=== PATIENT | male | born 1990 | race American Indian/Alaskan Native ===

== ENCOUNTER 2016-11-02 09:46 | Emergency (ER) | payer SELFPAY ==
[2016-11-02 10:03] VITALS: BP 151/100
--- NOTE | 2016-11-02 10:37 | Emergency Department Report ---
Abscess Boil HPI - HPI Chief Complaint: Skin/Abscess/Foreign Body Stated Complaint: CYST ON TAILBONE Time Seen by Provider: 11/02/16 10:36 Location: Sacral/Pilonidal Severity: Moderate History: Yes Pain, Yes Previous History (prior pilonidal asbcesses), No Fever, No Purulent Drainage, No Numbness HPI: 26-year-old male past medical history pilonidal abscess presents with 4 days of pain and swelling and redness in upper buttock region. Patient states uncomfortable to sit or lie down, states he has had abscesses in this area before. Denies any fever or chills denies any spontaneous rupture of abscess. Home Medications: Previous Rx's Medication Instructions Recorded Last Taken Type Cephalexin [Keflex] 500 mg PO Q12HR #14 cap 11/02/16 Unknown Rx Ibuprofen [Motrin] 600 mg PO Q8H PRN #30 tablet 11/02/16 Unknown Rx Sulfamethoxazole/Trimethoprim 1 each PO BID #14 tablet 11/02/16 Unknown Rx [Bactrim DS TAB] Allergies/Adverse Reactions: Allergies Allergy/AdvReac Type Severity Reaction Status Date / Time bee venom (honey bee) Allergy Swelling Verified 11/02/16 09:59 hornet venom Allergy Swelling Verified 11/02/16 09:59 ED Review of Systems ROS: Stated complaint: CYST ON TAILBONE Other details as noted in HPI Constitutional: denies: chills, fever Eyes: denies: eye pain, eye discharge, vision change ENT: denies: ear pain, throat pain Respiratory: denies: cough, shortness of breath, wheezing Cardiovascular: denies: chest pain, palpitations Endocrine: no symptoms reported Gastrointestinal: denies: abdominal pain, nausea, diarrhea Genitourinary: denies: urgency, dysuria Musculoskeletal: denies: back pain, joint swelling, arthralgia Skin: lesions. denies: rash Neurological: denies: headache, weakness, paresthesias Psychiatric: denies: anxiety, depression Hematological/Lymphatic: denies: easy bleeding, easy bruising ED Past Medical Hx - Past Medical History Hx Asthma: Yes - Surgical History Additional Surgical History: TONSILLECTOMY - Social History Smoking Status: Current Every Day Smoker Substance Use Type: Alcohol, Marijuana - Medications Home Medications: Home Medications Medication Instructions Recorded Confirmed Last Taken Type Cephalexin [Keflex] 500 mg PO Q12HR #14 cap 11/02/16 Unknown Rx Ibuprofen [Motrin] 600 mg PO Q8H PRN #30 tablet 11/02/16 Unknown Rx Sulfamethoxazole/Trimethoprim 1 each PO BID #14 tablet 11/02/16 Unknown Rx [Bactrim DS TAB] ED Abscess Boil Physical Exam - Exam General: Vital signs noted. No distress. Alert and acting appropriately. Front/Back of Body, Lg (Color): 1 - Abscess region Size: 4 cm Exam: Yes Tenderness, Yes Fluctuance, Yes Surrounding Cellulites/Erythema Exam: Visible pilonidal abscess approximately 4-5 cm in diameter with mild surrounding erythema and induration. Palpable fluctuance and central region of abscess I & D Note - I & D Note I & D Note: Area infiltrated with lidocaine 2% with epinephrine approximately 5 mL small vertical incision made in pilonidal region moderate amount of drainage of purulent foul-smelling material. Wound culture sent. Significant amount of decompression obtained with incision and drainage. Minimal bleeding, procedure tolerated well. Wound packed with approximately 4-1/2 inches of iodoform gauze. ED Course Vital Signs 11/02/16 10:00 Temperature 98.4 F Pulse Rate 87 Respiratory 18 Rate Blood Pressure 151/100 O2 Sat by Pulse 100 Oximetry Critical care attestation.: If time is entered above; I have spent that time in minutes in the direct care of this critically ill patient, excluding procedure time. ED Medical Decision Making - Medical Decision Making A/P: Pilonidal abscess 1-abscess incised and drained, wound culture sent. Foreign half inches of iodoform gauze placed. I instructed patient on how to remove this on his own home within the next 24 hours. I advised patient that if he develops fever or chills or if abscess re-accumulates or if redness spreads beyond marked borders to return to the ED 2-as there is moderate amount of induration and some cellulitic skin in the region we'll cover the patient empirically with Bactrim and Keflex 3-Motrin 600 when necessary 4-follow-up with primary care doctor ED Disposition Clinical Impression: Pilonidal abscess Disposition: DISCHARGED TO HOME OR SELFCARE Is pt being admited?: No Does the pt Need Aspirin: No Condition: Stable Instructions: Abscess Incision and Drainage (ED), Abscess (ED) Prescriptions: Cephalexin [Keflex] 500 mg PO Q12HR #14 cap Ibuprofen [Motrin] 600 mg PO Q8H PRN #30 tablet PRN Reason: Pain Sulfamethoxazole/Trimethoprim [Bactrim DS TAB] 1 each PO BID #14 tablet Referrals: PRIMARY CARE, [Primary Care Provider] - 3-5 Days Forms: Work/School Release Form(ED) Time of Disposition: 12:15
[2016-11-02] MEDS ORDERED: XYLOCAINE 2%/EPI 1:100,000 INFILTRATI ONE (11:09)
[2016-11-02] MEDS ORDERED: MOTRIN PO ONE (11:12)
== END 2016-11-02 12:21 | disposition left against medical advice (07) ==
LOC: ED 09:46
DX: L05.01 Pilonidal cyst with abscess (principal); J45.909 Unspecified asthma, uncomplicated; F17.200 Nicotine dependence, unspecified, uncomplicated; F12.10 Cannabis abuse, uncomplicated
CPT/HCPCS: 87116; 99282